=== PATIENT | female | born 1965 | race American Indian/Alaskan Native ===

== ENCOUNTER 2018-09-14 10:04 | Emergency (ER) | payer MEDICAID ==
--- NOTE | 2018-09-14 10:20 | Emergency Department Report ---
ED Lower Extremity HPI - General Chief Complaint: Extremity Injury, Lower Stated Complaint: LEG PAIN Time Seen by Provider: 09/14/18 10:16 Source: patient Mode of arrival: Ambulatory Limitations: No Limitations - History of Present Illness Initial Comments: R knee pain x 4 days w/o injury sometimes feels like it pops. also L mittal pain x 2 weeks after running into table pain in location of injury only MD Complaint: leg injury -: Sudden, week(s) (2) Injury: Leg: Left, Knee: Right Type of Injury: blunt Place: home Severity: moderate Severity scale (0 -10): 4 Improves With: rest Worsens With: weight bearing Context: direct blow Associated Symptoms: ambulatory. denies: swelling, numbness, tingling - Related Data Previous Rx's Medication Instructions Recorded Last Taken Type Naproxen [Naprosyn] 500 mg PO BID #20 tablet 09/14/18 Unknown Rx Allergies Allergy/AdvReac Type Severity Reaction Status Date / Time No Known Allergies Allergy Unverified 09/14/18 10:05 ED Review of Systems ROS: Stated complaint: LEG PAIN Other details as noted in HPI Comment: All other systems reviewed and negative Musculoskeletal: as per HPI ED Past Medical Hx - Past Medical History Previous Medical History?: No - Surgical History Past Surgical History?: No - Social History Smoking Status: Current Every Day Smoker Substance Use Type: None - Medications Home Medications: Home Medications Medication Instructions Recorded Confirmed Last Taken Type Naproxen [Naprosyn] 500 mg PO BID #20 tablet 09/14/18 Unknown Rx ED Physical Exam - General Limitations: No Limitations General appearance: alert, in no apparent distress - Head Head exam: Present: atraumatic, normocephalic - Eye Eye exam: Present: normal appearance - ENT ENT exam: Present: mucous membranes moist - Neck Neck exam: Present: normal inspection - Respiratory Respiratory exam: Absent: respiratory distress - Extremities Exam Extremities exam: Present: normal inspection, other (contusion mid L mittal with tenderness; no edema;;;R knee with some pain with movement, normal distal pulses/sensation) - Back Exam Back exam: Present: normal inspection - Neurological Exam Neurological exam: Present: alert, oriented X3 - Psychiatric Psychiatric exam: Present: normal affect, normal mood - Skin Skin exam: Present: warm, dry, intact, normal color. Absent: rash ED Course Vital Signs 09/14/18 10:10 Temperature 98 F Pulse Rate 78 Respiratory 20 Rate Blood Pressure 92/63 O2 Sat by Pulse 100 Oximetry ED Lower Extremity MDM - Radiology Data Radiology results: report reviewed, image reviewed interpreted by me: naf in knee or tib/fib naf - Medical Decision Making leg contusion w/o signs infection/edema R knee pain no concern dvt imaging pending - Differential Diagnosis contusion, strain, arthritis, fx Critical care attestation.: If time is entered above; I have spent that time in minutes in the direct care of this critically ill patient, excluding procedure time. ED Disposition Clinical Impression: Knee pain Qualifiers: Chronicity: acute Laterality: right Qualified Code(s): M25.561 - Pain in right knee Contusion of leg Qualifiers: Encounter type: initial encounter Laterality: left Qualified Code(s): S80.12XA - Contusion of left lower leg, initial encounter Disposition: TO HOME OR SELFCARE Is pt being admited?: No Condition: Good Instructions: Arthralgia (ED) Prescriptions: Naproxen [Naprosyn] 500 mg PO BID #20 tablet Referrals: LEILA LANDRY MD [Primary Care Provider] - 3-5 Days BEAU PETERSON MD [Staff Physician] - 3-5 Days Time of Disposition: 11:58
[2018-09-14 10:28] VITALS: BP 92/63
--- NOTE | 2018-09-14 11:51 | XRay Report ---
PROCEDURE: XR KNEE 3V RT TECHNIQUE: 3 views of the right knee. HISTORY: knee pain COMPARISON: None FINDINGS: There is no acute fracture seen. There is no dislocation seen. There is no evidence for joint effusion. There is no focal osseous lesion identified. IMPRESSION: There is no acute abnormality identified. This document is electronically signed by Thalia Martinez MD., September 14 2018 11:49:29 AM ET
--- NOTE | 2018-09-14 11:51 | XRay Report ---
PROCEDURE: XR TIBIA FIBULA 2V LT TECHNIQUE: AP and lateral views of the left lower leg. HISTORY: leg pain COMPARISON: None FINDINGS: There is no acute tibial or fibular fracture seen. There is no focal osseous lesion identified. IMPRESSION: There is no acute abnormality identified. This document is electronically signed by Thalia Martinez MD., September 14 2018 11:50:02 AM ET
== END 2018-09-14 12:10 | disposition home or self-care (01) ==
LOC: ED 10:04
DX: S80.12XA Contusion of left lower leg, initial encounter (principal); M25.561 Pain in right knee; F17.200 Nicotine dependence, unspecified, uncomplicated; W22.8XXA Striking against or struck by other objects, initial encounter; Y93.89 Activity, other specified; Y92.009 Unspecified place in unspecified non-institutional (private) residence as the place of occurrence of the external cause; Y99.8 Other external cause status